=== PATIENT | male | born 1995 | race Two or more races ===

== ENCOUNTER 2023-04-07 | Emergency (ER) | payer SELFPAY ==
[~2023-04-07] VITALS: Ht 167.6 cm; Wt 58.5 kg
[2023-04-07 00:18] VITALS: BP 118/74
[2023-04-07] MEDS ORDERED: CEPH500T MT (01:32)
[2023-04-07] MEDS ORDERED: NAPR500T7 MT (01:32)
== END 2023-04-07 02:40 | disposition home or self-care (01) ==
LOC: ER
DX: S63.005A Unspecified dislocation of left wrist and hand, initial encounter (principal); W18.39XA Other fall on same level, initial encounter; Y93.89 Activity, other specified; Y92.89 Other specified places as the place of occurrence of the external cause; Y99.8 Other external cause status
CPT/HCPCS: 29125; 73110; 73130; 99284